=== PATIENT | male | born 1955 ===

== ENCOUNTER 2022-03-31 11:54 | Day surgery (SDC) | payer OTHER ==
[~2022-03-31] VITALS: Ht 170.2 cm; Wt 83.5 kg
[~2022-03-31 11:54] MED LIST: AVODART0.5 MG PO; CARVEDILOL25 M1 PO; ECOTRIN325 M1 PO; GLUMETZA1000 MG PO; JARDIANCE10 MG PO; LIPITOR40 M1 PO; NIFEDIPINE PO; PLAVIX75 MG PO; ZESTRIL20 MG PO
== END 2022-03-31 19:20 | disposition home or self-care (01) ==
LOC: CIR.AMB 11:54
PROVIDERS: ATTEND Orthopaedic Surgery
DX: M75.121 Complete rotator cuff tear or rupture of right shoulder, not specified as traumatic (principal); S42.121A Displaced fracture of acromial process, right shoulder, initial encounter for closed fracture; M19.011 Primary osteoarthritis, right shoulder; Z20.822 Contact with and (suspected) exposure to COVID-19; Z86.16 Personal history of COVID-19; G47.33 Obstructive sleep apnea (adult) (pediatric); Z99.89 Dependence on other enabling machines and devices; E11.9 Type 2 diabetes mellitus without complications; N40.0 Benign prostatic hyperplasia without lower urinary tract symptoms; Z79.02 Long term (current) use of antithrombotics/antiplatelets
CPT/HCPCS: 23130; 23412; 23552; L8699